=== PATIENT | male | born 1975 | race Caucasian/White ===

== ENCOUNTER 2017-08-06 17:14 | Emergency (ER) | payer BC, OTHER ==
[~2017-08-06] VITALS: Ht 185.4 cm; Wt 125.6 kg
[~2017-08-06 17:14] MED LIST: BUPR150T7 PO
[2017-08-06 17:16] VITALS: BP 156/103; PULSE 95; TEMP 37; O2SAT 94; Ht 185.4 cm; Wt 125.6 kg
[2017-08-06] MEDS ORDERED: TRAM-10 PO (17:54)
[2017-08-06] MEDS ORDERED: CLIN150C PO (17:54)
[2017-08-06] MEDS ORDERED: OXYC1TAB3 PO (17:54)
[2017-08-06] MEDS ORDERED: CHLO0.1222 PO (17:56)
--- NOTE | 2017-08-06 17:57 | EMERGENCY ROOM VISIT NOTE ---
History Report prepared by Ann: Usman Alexander Under the Supervision of: Dr. Ed Cuba M.D. First contact with patient: 17:21 Chief Complaint: DENTAL PAIN Stated Complaint: INFECTION IN MOUTH Nursing Triage Summary: Left sided swelling to the left lower jaw after tooth prepped for a crown. 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 History of Present Illness The patient is a 41 year old white male who presents to the ED with a cc of worsening dental infection beginning this week. He had a crown placed on a tooth in his left lower mouth recently. He was seen by his dentist's office today and was referred to the ED due for a tooth infection. Patient states that his dentist is out of town for a in the family and could not prescribe him antibiotics himself. Positive difficulty opening mouth, pain radiating into head. Negative voice changes, nausea, vomiting, fevers, or chills. No drug or alcohol use. Source of History: patient Onset: this week Position: teeth (left lower tooth) Quality: other (infection) Timing: worsening Associated Symptoms: No fevers, No chills, No nausea, No vomiting Note: Positive: pain radiating into head, difficultly opening mouth. Negative: voice changes. Review of Systems See HPI for pertinent positives and negatives. A total of ten systems were reviewed and were otherwise negative. Past Medical & Surgical Medical Problems: (1) No Known Active Medical Problems Family History No pertinent family history stated. Social History Smoking Status: Former Smoker Marital Status: Occupation Status: employed Current/Historical Medications Scheduled Bupropion Hcl (Wellbutrin Sr), 2 TAB PO BID Chlorhexidine Gluconate (Mouth (Peridex), 15-30 ML PO TID Clindamycin Hcl (Cleocin), 450 MG PO TID Fluoxetine HCl (Fluoxetine HCl), 1 CAP PO DAILY Scheduled PRN Oxycodone Immediate Rel Tab (Roxicodone Ir), 5 MG PO Q6H PRN for Pain Tramadol (Ultram), 50 MG PO Q8H PRN for Pain Allergies Uncoded Allergies: CILLINS (Allergy, Unknown, 12/02/02) Physical Exam Vital Signs Date Time Temp Pulse Resp B/P (MAP) Pulse Ox O2 Delivery O2 Flow Rate FiO2 08/06/17 17:16 37.0 95 18 156/103 94 Room Air Physical Exam GENERAL: Awake, alert, well-appearing, NAD HENT: Normocephalic, atraumatic. Left TM is clear with a good light reflex. No effusion or erythema. Tooth number 19 appears to have been filled with white material. Mild tenderness at the base of the tooth. Mild tenderness to the lateral portion of the mandible without fluctuance. Area of swelling that is 3 x 1.5 cm to the left mandible. No sublingual or submental swelling. Posterior oropharynx is clear. No uvular deviation. EYES: Normal conjunctiva. Sclera non-icteric. NECK: Supple. No nuchal rigidity. FROM. No torticollis. RESPIRATORY: CTAB, no rhonchi, wheezing, crackles CARDIAC: RRR, no MRG ABDOMEN: Soft, NTND, BS+ MSK: No chest wall TTP, no LE edema NEURO: GCS 15, CN 2-12 intact, moves all 4s on command SKIN: No rash or jaundice noted. Medical Decision & Procedures ED Course 1729: The patient was evaluated in room B9. A complete history and physical exam was performed. 1801: I reevaluated the patient. Discussed results and discharge instructions: he verbalized understanding and agreement. The patient is ready for discharge. Medical Decision The patient is a 41 year old white male who presents to the ED with a cc of worsening dental infection beginning this week. Differential diagnosis includes but is not limited to: caries, abscess, deep neck space infection, mandibular abscess Patient was seen and evaluated at the bedside. Patient states that he was having his left lower molar prep for possible ground. Patient went to bed and woke up this morning and noted some mild left-sided mandibular swelling. On examination patient has no trismus is non-stridulous has no deviation of the posterior pharynx. Patient does have some mild tenderness to the left lateral mandible and buccal mucosa. Patient has no obvious source of fluctuance within the mouth. Patient does have some noted left-sided mandibular swelling. Patient has full range of motion of the neck. Patient's ears are clear. Patient is afebrile vital signs stable. I did take a look at his dental films were he does not appear to have a periapical abscess. Given the patient's brief time course with regard to his symptoms unlikely to have abscess formation and likely just localized swelling and edema. Thus, an I&D was not completed nor attempted at this time. Patient at this time does not need a CT of the neck given his lack of other concerning findings as he does not have any trismus shortness of breath or stridor nor posterior pharyngeal swelling. Patient was given pain control and antibiotics rx's for home. Patient agreed with plan of care and patient was safely discharged home pending follow-up with his dentist next week. Medication Reconcilliation Current Medication List: was personally reviewed by me Blood Pressure Screening Patient's blood pressure: Elevated blood pressure Blood pressure disposition: Elevated BP felt to be situational Impression Primary Impression: Mandibular swelling Additional Impression: Dental caries Scribe Attestation The scribe's documentation has been prepared under my direction and personally reviewed by me in its entirety. I confirm that the note above accurately reflects all work, treatment, procedures, and medical decision making performed by me. Departure Information Dispostion Home / Self-Care Prescriptions Chlorhexidine Gluconate (Mouth (PERIDEX) 0.12 % Mila 15-30 ML PO TID for 8 Days, #473 ML 3 Refills Prov: Ed Cuba M.D. 08/06/17 Oxycodone Immediate Rel Tab (ROXICODONE IR) 5 Mg Tab 5 MG PO Q6H Y for Pain, #12 TAB Prov: Ed Cuba M.D. 08/06/17 Tramadol (Ultram) 50 Mg Tab 50 MG PO Q8H Y for Pain, #12 TAB Prov: Ed Cuba M.D. 08/06/17 Clindamycin Hcl (CLEOCIN) 150 Mg Cap 450 MG PO TID for 10 Days, #90 CAP Prov: Ed Cuba M.D. 08/06/17 Referrals No Doctor, Assigned (PCP) Patient Instructions ED [facility] Additional Instructions Please return to the emergency department if you have worsening or recurrent symptoms not amenable to at-home treatment. Please call for a follow-up appointment with her primary care physician. Please take your medications as prescribed. If you have other concerns and/or complaints please feel free to also call your primary care physician's office or return the ED for further evaluation, management, and treatment. You may take 600 mg Ibuprofen every 6 hours as needed for pain with food for no more than 2 consecutive days. You may take tylenol 1000mg every 6 hours as needed for pain. You may take motrin and tylenol separately or at the same time. Take tramadol for breakthrough pain. You may take oxycodone for pain if tylenol , motrin, and tramadol do not help. This is an addictive medication and can make you tired. Use w/ caution and not if you need to drive or work or pay attention. You have been examined and treated today on an emergency basis only. This is not a substitute for, or an effort to provide, complete comprehensive medical care. It is impossible to recognize and treat all injuries or illnesses in a single emergency department visit. It is therefore important that you follow up closely with [facility]. Call as soon as possible for an appointment. Thank you for your time and consideration. I look forward to speaking with you again soon. Please don't hesitate to call us if you have any questions. Problem Qualifiers
[2017-08-06] MEDS ORDERED: FLUO10CA24 PO (18:04)
== END 2017-08-06 18:21 | disposition home or self-care (01) ==
LOC: C.EDB 17:15
DX: K02.9 Dental caries, unspecified (principal); R22.0 Localized swelling, mass and lump, head; Z87.891 Personal history of nicotine dependence; Z79.899 Other long term (current) drug therapy; Z88.8 Allergy status to other drugs, medicaments and biological substances

== ENCOUNTER 2017-08-08 09:25 | Emergency (ER) | payer BC ==
[~2017-08-08] VITALS: Ht 185.4 cm; Wt 126.6 kg
[~2017-08-08 09:25] MED LIST changes: +CHLO0.1222 PO; +CLIN150C PO; +FLUO10CA24 PO; +OXYC1TAB3 PO; +TRAM-10 PO
[2017-08-08 09:34] VITALS: TEMP 37; Ht 185.4 cm; Wt 126.6 kg
[2017-08-08] MEDS ORDERED: CLINDAMYCIN IV 900 MG in DEXTROSE 5% 100ML 100 ML IV ONE (10:15)
[2017-08-08] MEDS ORDERED: OPTIRAY 320 IV PRN (10:30)
[2017-08-08 11:30] LABS: BASO % 0.2 %; BASO ABS # 0.02 K/uL (0-0.2); COMPLETE YES; EOS % 1.3 %; HEMATOCRIT 38.6 % (42-52); IG% 0.3 %; LYMPH % 30.2 %; LYMPH ABS # 3.61 K/uL (1.2-3.4); MEAN CELL VOLUME 87.7 fL (80-100); MEAN CORPUSCULAR HEMOGLOBIN 30.5 pg (25-34); MEAN CORPUSCULAR HGB CONC 34.7 g/dl (32-36); MEAN PLATELET VOLUME 10.3 fL (7.4-10.4); MONO % 8.6 %; NEUT % 59.4 %; PLATELET COUNT 247 K/uL (130-400); WHITE BLOOD COUNT 11.94 K/uL (4.8-10.8)
[2017-08-08] MEDS ORDERED: KETOROLAC TROMETHAMINE 30 MG/ML VIAL IV STA (11:38)
[2017-08-08 11:51] LABS: BUN/CREATININE RATIO 15.8 (10-20); CALCIUM 8.6 mg/dl (8.5-10.1); CREATININE 0.76 mg/dl (0.60-1.40); POTASSIUM 3.5 mmol/L (3.5-5.1)
--- NOTE | 2017-08-08 12:50 | DIAGNOSTIC IMAGING REPORT ---
SOFT TISSUE NECK WITH HISTORY: 41 years-old Male L MANDIBULAR CELLULITIS/ABSCESS EXTENDING INTO NECK left mandibular cellulitis, acute in nature. COMPARISON: None TECHNIQUE: Multiple axial CT images of the soft tissues of the neck and maxillofacial bones were obtained following the intravenous administration of 119 mL Optiray 320. A dose lowering technique was used consistent with the principals of MARVIN. FINDINGS: SOFT TISSUE NECK: There is moderate soft tissue swelling with subcutaneous edema, phlegmonous change and skin thickening of the left maxillary and mandibular tissues without loculated fluid collection or abscess identified. Soft tissue swelling extends into the anterior neck along the platysma fascia just proximal to the level of the clavicular heads. No mediastinal extension identified. The oropharynx, nasopharynx and hypopharynx are patent. There is mild hypertrophy of the lingual tonsils with debris noted within the vallecula and Piriform sinuses. Epiglottis, area of glottic folds and true vocal cords appear to be within normal limits. Subglottic airway is patent. Mildly prominent level 1 and level 2 lymph nodes are seen bilaterally with level 2 lymph nodes measuring up to 11 mm in short axis, likely reactive. Thyroid is homogeneous. Bilateral parotid and submandibular glands are unremarkable. Vasculature about the neck is within normal limits. Image intracranial structures are unremarkable. MAXILLOFACIAL: Mastoid air cells and middle ear cavities are clear. Mild mucosal thickening of the inferior right maxillary sinus. The remaining paranasal sinuses are generally clear. Imaged cervical spine appears intact. Mild leftward bowing and spurring of nasal septum. Mild peritonsillar disease noted with small periapical lucency and cortical erosion of the anterior cortex mandible adjacent to the left mandibular canine and first premolar . No acute facial bone fracture or dislocation identified. Mild degenerative changes of the temporomandibular joint. IMPRESSION: 1. Moderate soft tissue swelling and subcutaneous edema of the left facial tissues as above extending along the platysma fascial plane into the upper neck. No focal drainable fluid collection to suggest abscess. 2. Mild periodontal disease noted with small periapical lucency and cortical erosion of the anterior cortex mandible adjacent to the left mandibular canine and first premolar as above, likely the source of the cellulitis. Correlate with dental examination. 3. Mild reactive level 2 and level 3 lymph nodes. 4. Mild hypertrophy of the lingual tonsils with debris noted within the vallecula and piriform sinuses. The above report was generated using voice recognition software. It may contain grammatical, syntax or spelling errors. Electronically signed by: Gold Conn M.D. 08/08/2017 12:49 PM Dictated Date/Time: 08/08/2017 12:31 PM
[2017-08-08 13:40] VITALS: BP 143/106; PULSE 91; O2SAT 95
--- NOTE | 2017-08-08 16:26 | EMERGENCY ROOM VISIT NOTE ---
History First contact with patient: 09:43 Chief Complaint: FACIAL PAIN/INJURY Stated Complaint: FACIAL SWELLING/PAIN History of Present Illness The patient is a 41 year old male who presents to the Emergency Room with complaints of worsening left facial pain that is now extending into the left neck region. The patient reports that he had a preparation for a dental crown performed last . He then started to develop pain on Friday, and was seen here 2 days ago at the request of his dentist for IV antibiotics. The patient instead was provided prescriptions for Cleocin, Ultram, OxyIR and Peridex mouthwash. The patient has not noticed any fevers. He reports that it feels like he has worsening swelling in the neck although he denies any difficulty swallowing. He denies any chest pain, shortness of breath or back pain. He rates his discomfort a 7 out of 10. Review of Systems HEENT: Denies dizziness, visual problems, hearing loss, tinnitus. Denies difficulty swallowing or oral lesions. PULMONARY: Denies cough, shortness of breath, sputum production or hemoptysis. CARDIOVASCULAR: Denies chest pain, palpitations, dyspnea on exertion, orthopnea or peripheral edema. GASTROINTESTINAL: Denies diarrhea, constipation, nausea, vomiting, or abdominal pain. GENITOURINARY: Denies dysuria, frequency, urgency or nocturia. NEUROLOGIC: Denies history of epilepsy, CVA, TIA or chronic headaches. MUSCULOSKELETAL: Denies history of joint tenderness/swelling. SKIN: Denies rashes or lesions. PSYCHIATRIC: Denies history of depression or mental illness. ENDOCRINE: Denies history of diabetes or thyroid disorders. Past Medical/Surgical History Medical Problems: (1) No Known Active Medical Problems Family History Unremarkable Social History Smoking Status: Former Smoker Alcohol Use: occasionally Marital Status: Occupation Status: employed Current/Historical Medications Scheduled Bupropion Hcl (Wellbutrin Sr), 2 TAB PO BID Chlorhexidine Gluconate (Mouth (Peridex), 15-30 ML PO TID Clindamycin Hcl (Cleocin), 450 MG PO TID Fluoxetine HCl (Fluoxetine HCl), 1 CAP PO DAILY Scheduled PRN Oxycodone Immediate Rel Tab (Roxicodone Ir), 5 MG PO Q6H PRN for Pain Tramadol (Ultram), 50 MG PO Q8H PRN for Pain Physical Exam Vital Signs Date Time Temp Pulse Resp B/P (MAP) Pulse Ox O2 Delivery O2 Flow Rate FiO2 10/20/17 13:40 91 18 143/106 95 08/08/17 11:20 79 18 151/100 96 08/08/17 09:34 37.0 65 16 164/102 98 Room Air Physical Exam CONSTITUTIONAL: Healthy and well nourished. Alert and oriented X 3 with positive affect. Patient does not appear acutely or toxic. HEENT: The patient has notable left facial swelling without erythema, pustules or other skin changes. Pupils equal, round and reactive. Nares are clear. Examination of the left ear does not show any external auditory canal edema, erythema or air-fluid levels in the middle ear. OROPHARYNX: Examination shows gingival erythema about the premolars and canine. No fluctuance or pointing noted. There is no evidence for uvular deviation, Fracisco's angina or retropharyngeal abscess. NECK: Full active range of motion without discomfort. No JVD noted. LYMPHATICS: No obvious cervical chain or submental adenopathy noted. RESPIRATORY: Clear to auscultation bilaterally with no wheezing, crackles, rhonchi or stridor. CARDIOVASCULAR: Regular rate and rhythm with no murmurs, rubs or gallops. GASTROINTESTINAL: Bowel sounds present in all quadrants. Soft and nontender to palpation. MUSCULOSKELETAL: Full range of motion of all joints without discomfort. INTEGUMENTARY: No rash or other significant dermatologic conditions noted. HEMATOLOGIC: No ecchymosis or petechiae noted. NEUROLOGIC: Left facial sensations are intact. Medical Decision & Procedures ER Provider Diagnostic Interpretation: CT of the neck and facial bones with IV contrast shows evidence for a small periapical lucency and cortical erosion of the anterior cortex mandible adjacent to the left mandibular canine and first premolar. Mild reactive level 2 and 3 lymph nodes are noted. There is no fluid or abscess collection noted. Radiologist report is as follows: SOFT TISSUE NECK WITH HISTORY: 41 years-old Male L MANDIBULAR CELLULITIS/ABSCESS EXTENDING INTO NECK left mandibular cellulitis, acute in nature. COMPARISON: None TECHNIQUE: Multiple axial CT images of the soft tissues of the neck and maxillofacial bones were obtained following the intravenous administration of 119 mL Optiray 320. A dose lowering technique was used consistent with the principals of ALARA. FINDINGS: SOFT TISSUE NECK: There is moderate soft tissue swelling with subcutaneous edema, phlegmonous change and skin thickening of the left maxillary and mandibular tissues without loculated fluid collection or abscess identified. Soft tissue swelling extends into the anterior neck along the platysma fascia just proximal to the level of the clavicular heads. No mediastinal extension identified. The oropharynx, nasopharynx and hypopharynx are patent. There is mild hypertrophy of the lingual tonsils with debris noted within the vallecula and Piriform sinuses. Epiglottis, area of glottic folds and true vocal cords appear to be within normal limits. Subglottic airway is patent. Mildly prominent level 1 and level 2 lymph nodes are seen bilaterally with level 2 lymph nodes measuring up to 11 mm in short axis, likely reactive. Thyroid is homogeneous. Bilateral parotid and submandibular glands are unremarkable. Vasculature about the neck is within normal limits. Image intracranial structures are unremarkable. MAXILLOFACIAL: Mastoid air cells and middle ear cavities are clear. Mild mucosal thickening of the inferior right maxillary sinus. The remaining paranasal sinuses are generally clear. Imaged cervical spine appears intact. Mild leftward bowing and spurring of nasal septum. Mild peritonsillar disease noted with small periapical lucency and cortical erosion of the anterior cortex mandible adjacent to the left mandibular canine and first premolar . No acute facial bone fracture or dislocation identified. Mild degenerative changes of the temporomandibular joint. IMPRESSION: 1. Moderate soft tissue swelling and subcutaneous edema of the left facial tissues as above extending along the platysma fascial plane into the upper neck. No focal drainable fluid collection to suggest abscess. 2. Mild periodontal disease noted with small periapical lucency and cortical erosion of the anterior cortex mandible adjacent to the left mandibular canine and first premolar as above, likely the source of the cellulitis. Correlate with dental examination. 3. Mild reactive level 2 and level 3 lymph nodes. 4. Mild hypertrophy of the lingual tonsils with debris noted within the vallecula and piriform sinuses. Laboratory Results 08/08/17 11:07 Red Blood Count 4.40, Mean Corpuscular Volume 87.7, Mean Corpuscular Hemoglobin 30.5, Mean Corpuscular Hemoglobin Concent 34.7, Mean Platelet Volume 10.3, Neutrophils (%) (Auto) 59.4, Lymphocytes (%) (Auto) 30.2, Monocytes (%) (Auto) 8.6, Eosinophils (%) (Auto) 1.3, Basophils (%) (Auto) 0.2, Neutrophils # (Auto) 7.10, Lymphocytes # (Auto) 3.61, Monocytes # (Auto) 1.03, Eosinophils # (Auto) 0.15, Basophils # (Auto) 0.02 08/08/17 11:07 Test 08/08/17 11:07 White Blood Count 11.94 K/uL (4.8-10.8) Red Blood Count 4.40 M/uL (4.7-6.1) Hemoglobin 13.4 g/dL (14.0-18.0) Hematocrit 38.6 % (42-52) Mean Corpuscular Volume 87.7 fL (80-100) Mean Corpuscular Hemoglobin 30.5 pg (25-34) Mean Corpuscular Hemoglobin Concent 34.7 g/dl (32-36) Platelet Count 247 K/uL (130-400) Mean Platelet Volume 10.3 fL (7.4-10.4) Neutrophils (%) (Auto) 59.4 % Lymphocytes (%) (Auto) 30.2 % Monocytes (%) (Auto) 8.6 % Eosinophils (%) (Auto) 1.3 % Basophils (%) (Auto) 0.2 % Neutrophils # (Auto) 7.10 K/uL (1.4-6.5) Lymphocytes # (Auto) 3.61 K/uL (1.2-3.4) Monocytes # (Auto) 1.03 K/uL (0.11-0.59) Eosinophils # (Auto) 0.15 K/uL (0-0.5) Basophils # (Auto) 0.02 K/uL (0-0.2) RDW Standard Deviation 42.1 fL (36.4-46.3) RDW Coefficient of Variation 13.1 % (11.5-14.5) Immature Granulocyte % (Auto) 0.3 % Immature Granulocyte # (Auto) 0.03 K/uL (0.00-0.02) Erythrocyte Sedimentation Rate 28 mm/hr (0-14) Anion Gap 6.0 mmol/L (3-11) Est Creatinine Clear Calc Drug Dose 181.9 ml/min Estimated GFR () 133.2 Estimated GFR (Non- 114.9 BUN/Creatinine Ratio 15.8 (10-20) Calcium Level 8.6 mg/dl (8.5-10.1) Total Bilirubin 0.4 mg/dl (0.2-1) Direct Bilirubin 0.1 mg/dl (0-0.2) Aspartate Amino Transf (AST/SGOT) 16 U/L (15-37) Alanine Aminotransferase (ALT/SGPT) 41 U/L (12-78) Alkaline Phosphatase 115 U/L (45-117) Total Creatine Kinase 169 U/L (39-308) C-Reactive Protein 4.78 mg/dl (0-0.29) Total Protein 7.5 gm/dl (6.4-8.2) Albumin 3.7 gm/dl (3.4-5.0) The above labs were reviewed, showing a mild leukocytosis with elevated sedimentation rate and CRP. Other labs were grossly normal. Medications Administered Medications (Trade) Dose Ordered Sig/Arnaud Route Start Time Stop Time Status Last Admin Dose Admin Clindamycin Phosphate 900 mg/ Dextrose 106 ml @ 100 mls/hr ONE ONCE IV 08/08/17 10:15 08/08/17 11:18 DC 08/08/17 11:18 100 MLS/HR Ketorolac Tromethamine (Toradol Inj) 30 mg NOW STAT IV 08/08/17 11:38 08/08/17 11:39 DC 08/08/17 11:51 30 MG Procedure IV medications: Clindamycin 900 mg IV infusion, and Toradol 30 mg IVP ED Course Patient history and physical exam were performed. Nurse's notes were reviewed. Vital signs were reviewed, showing an elevated blood pressure of 164/102. I did review a portion of prior medical records, including the patient's last ED note. IV access was established, and labs were drawn, showing a mild leukocytosis with elevated sedimentation rate and CRP. CT of the facial bones and neck shows evidence for a possible periapical infection of the left mandible. The patient was administered IV clindamycin and Toradol, and the patient did report decent relief of his pain. Review of medications shows that the patient is currently taking Cleocin 450 mg every 8 hours. He was encouraged to alternate ibuprofen and Tylenol with Codeine for additional pain relief. I did encourage the patient to return in 24 hours for a recheck of his infection. He was instructed to return sooner for any progressively worsening pain, swelling, difficulty swallowing or fever. He was instructed to continue follow-up with his dentist on Friday as scheduled. The patient was happy with plan of care, and denied any significant pain on my final evaluation prior to discharge. I did discuss CT results with Dr. Earl, ED attending physician, who suggested oral surgeon follow-up on Friday as scheduled, and does not feel that hospitalist evaluation or other emergent referrals are needed today. It is also noted that the patient's blood pressure was elevated in the emergency department. He was instructed to follow-up with his family doctor for blood pressure recheck. Medical Decision Medication Reconcilliation Current Medication List: was personally reviewed by me Blood Pressure Screening Patient's blood pressure: Elevated blood pressure Impression Primary Impression: Dental infection Additional Impressions: Facial cellulitis Cellulitis of neck Elevated blood pressure reading Departure Information Referrals No Doctor, Assigned (PCP) Patient Instructions My [facility] Problem Qualifiers
== END 2017-08-08 13:42 | disposition home or self-care (01) ==
LOC: C.EDB 09:27
DX: K04.7 Periapical abscess without sinus (principal); L03.221 Cellulitis of neck; L03.211 Cellulitis of face; R51 Headache; R03.0 Elevated blood-pressure reading, without diagnosis of hypertension; Z87.891 Personal history of nicotine dependence